=== PATIENT | female | born 1960 | race Caucasian/White ===

== ENCOUNTER → 2017-04-30 16:10 | Outpatient (CLI) | payer BC, SELFPAY ==
--- NOTE | 2017-04-30 | NASAL_PTH ---
PATIENT: SHENA HOUSER LOC: [facility] U#:[id number] AGE/SX: 64/F ROOM: RE04/30/[address]: Dr. Johnson Portillo MD : [id number] BED: DIS: SPEC #: [id number] RECD: 04/30/17 15:54 STATUS: LAUREN NATA #: [id number] RENEE: 04/30/17 00:[address]: Johnson Portillo DEPT: SURGICAL PATHOLOGY RECD BY: Chucho Barnes ENTERED: 05/01/17 12:11 SP TYPE: NASAL SPEC OTHR DR: Dr. Ashlee Abbott MD [facility] Tissues: Nasal septum, NOS Procedures: Decalcification bone/plaque Surgery Specimen Level III HEADER OPERATION: Septoplasty PRE-OP DIAGNOSIS: Nasal congestion, deviated nasal septum TISSUE SUBMITTED: Nasal septum MICROSCOPIC DIAGNOSIS Nasal septum: Fragments of cartilage and bone, clinically deviated nasal septum. SJ:haydee 05/04/17 MICROSCOPIC DESCRIPTION Slides are reviewed. GROSS DESCRIPTION Received in fixative is one container labeled with the patient's name and designated nasal septum. The specimen consists of multiple fragments of cartilage and bone that in aggregate measure 3 x 2.5 x 0.5 cm. Curve Cleaner tissue is submitted in one cassette after decalcification. / SJ:rg 05/01/17 TC:5 CPT: 61950, 46827
== END ==
PROVIDERS: Family Provider Internal Medicine; PCP Internal Medicine; Visit Provider Otolaryngology
DX: J34.2 Deviated nasal septum (principal); R09.81 Nasal congestion
CPT/HCPCS: 88304; 88311

== ENCOUNTER → 2017-11-08 13:00 | Outpatient (CLI) | payer BC, SELFPAY | PROVIDERS: Family Provider Internal Medicine; PCP Internal Medicine; Visit Provider Internal Medicine Cardiovascular Disease | DX: I34.1 Nonrheumatic mitral (valve) prolapse (principal) | CPT/HCPCS: 93306 ==

== ENCOUNTER → 2019-04-08 09:48 | Outpatient (CLI) | payer BC, SELFPAY ==
[2019-01-28 11:37] VITALS: BMI 21.6
--- NOTE | 2019-04-08 09:50 | ECHOD_ITS ---
Reason For Study: MVP Procedure This was a 2D Doppler, Color Flow transthoracic echocardiogram. Exam performed in department. Left Ventricle Normal LV size. Left ventricular systolic function is normal. The estimated ejection fraction is 55 %. Normal diastology for age. No regional wall motion abnormalities noted. Right Ventricle Normal RV size. Normal systolic function. Atria The left atrium is mildly enlarged. Normal right atrium. Mitral Valve Bileaflet diffuse mitral valve thickening. Anterior leaflet mitral valve prolapse. Mild (1+) anteriorly directed mitral valve insufficiency. Tricuspid Valve Normal tricuspid valve. Aortic Valve Normal aortic valve. Trisinus/trileaflet aortic valve. Pulmonic Valve Normal pulmonic valve. Great Vessels Normal aortic root. The pulmonary artery is normal size. Normal inferior vena cava. Pericardium/Pleural No pericardial effusion. MMode/2D Measurements & Calculations LVIDd: 5.2 cm IVSd: 0.89 cm Ao root diam: 3.7 cm LVIDs: 3.7 cm LVPWd: 0.98 cm RVDd: 2.9 cm FS: 28.3 % LAV(MOD-bp): 88.8 ml LA A4 area: 23.9 cm2 LA dimension(2D): 4.2 cm LAV(MOD-bp) Indexed: 51.1 ml/m2 LAV(MOD-sp2): 85.2 ml LAV(MOD-sp4): 81.0 ml RA A4 area: 13.8 cm2 Time Measurements MV dec time: 0.16 sec Doppler Measurements & Calculations MV E max ricardo: 101.2 cm/sec Lat Peak E' Ricardo: 14.6 cm/sec Med Peak E' Ricardo: 10.0 cm/sec MV A max ricardo: 65.0 cm/sec E/E' lat: 6.9 E/E' med: 10.1 MV E/A: 1.6 Ao V2 max: 140.9 cm/sec LV V1 max: 99.8 cm/sec PA V2 max: 72.2 cm/sec Ao max P.9 mmHg LV V1 max P.0 mmHg TR max ricardo: 223.1 cm/sec TR max P.9 mmHg Interpretation Summary Normal LV size. Left ventricular systolic function is normal. The estimated ejection fraction is 55 %. Bileaflet diffuse mitral valve thickening. Anterior leaflet mitral valve prolapse. Mild (1+) anteriorly directed mitral valve insufficiency. Compared to prior study, there is no significant change. Ordering Physician: Abram Lawler Referring Physician: Ashlee Abbott Performed By: Tory Lombardi, JACQUESCS, RVT
== END ==
PROVIDERS: Family Provider Internal Medicine; PCP Internal Medicine; Referring Provider Internal Medicine Cardiovascular Disease; Visit Provider Internal Medicine Cardiovascular Disease
DX: I34.0 Nonrheumatic mitral (valve) insufficiency (principal)
CPT/HCPCS: 93306

== ENCOUNTER → 2021-02-14 13:47 | Outpatient (CLI) | payer BC, SELFPAY ==
--- NOTE | 2021-02-14 13:48 | ECHOD_ITS ---
Reason For Study: MVP Procedure This was a 2D Doppler, Color Flow transthoracic echocardiogram. Exam performed in department. Left Ventricle Normal LV size. Left ventricular systolic function is normal. The estimated ejection fraction is 60 %. Stage 2 diastolic dysfunction. No regional wall motion abnormalities noted. Right Ventricle Normal RV size. Normal systolic function. Atria Normal left atrium. Normal right atrium. Mitral Valve Bileaflet diffuse mitral valve thickening. Anterior leaflet mitral valve prolapse. Mild-Moderate (1- 2+) mitral valve insufficiency. Tricuspid Valve Normal tricuspid valve. Mild (1+) tricuspid valve insufficiency. Pulmonary artery systolic pressure is 30 mmHg. Aortic Valve Normal aortic valve. Trisinus/trileaflet aortic valve. Pulmonic Valve Normal pulmonic valve. Great Vessels Normal aortic root. The pulmonary artery is normal size. Normal inferior vena cava. Pericardium/Pleural No pericardial effusion. MMode/2D Measurements & Calculations LVIDd: 5.6 cm IVSd: 0.86 cm Ao root diam: 3.1 cm LVIDs: 3.6 cm LVPWd: 0.63 cm RVDd: 2.8 cm FS: 36.0 % LAV(MOD-bp): 43.8 ml LVAd ap4: 33.5 cm2 SV(MOD-sp4): 70.1 ml LAV(MOD-bp) Indexed: 25.1 ml/m2 LVLd ap4: 8.6 cm LAV(MOD-sp2): 45.9 ml EDV(MOD-sp4): 108.2 ml LAV(MOD-sp4): 34.6 ml EDV(sp4-el): 110.7 ml LVAs ap4: 17.5 cm2 LVLs ap4: 7.2 cm ESV(MOD-sp4): 38.2 ml ESV(sp4-el): 35.9 ml EF(MOD-sp4): 64.7 % EF(sp4-el): 67.6 % SV(sp4-el): 74.8 ml LA A4 area: 15.0 cm2 LA dimension(2D): 3.2 cm RA A4 area: 10.1 cm2 Doppler Measurements & Calculations MV E max ricardo: 94.0 cm/sec Lat Peak E' Ricardo: 14.7 cm/sec Med Peak E' Ricardo: 9.9 cm/sec MV A max ricardo: 48.7 cm/sec E/E' lat: 6.4 E/E' med: 9.5 MV E/A: 1.9 Ao V2 max: 143.4 cm/sec LV V1 max: 83.3 cm/sec PA V2 max: 88.0 cm/sec Ao max P.2 mmHg LV V1 max P.8 mmHg Ao V2 mean: 98.0 cm/sec Ao mean P.3 mmHg Ao V2 VTI: 31.0 cm TR max ricardo: 249.5 cm/sec TR max P.9 mmHg ECHO/Echo Complete Interpretation Summary Normal LV size. Left ventricular systolic function is normal. The estimated ejection fraction is 60 %. Stage 2 diastolic dysfunction. Anterior leaflet mitral valve prolapse. Mild-Moderate (1-2+) mitral valve insufficiency. Ordering Physician: Abram Lawler Referring Physician: Ashlee Abbott Performed By: Mariya Pitts, PIPER, RVT
== END ==
PROVIDERS: PCP Internal Medicine; Referring Provider Internal Medicine Cardiovascular Disease; Visit Provider Internal Medicine Cardiovascular Disease
DX: I34.1 Nonrheumatic mitral (valve) prolapse (principal)
CPT/HCPCS: 93306

== ENCOUNTER → 2022-02-06 | Outpatient (CLI) | payer BC, SELFPAY ==
--- NOTE | 2022-02-06 12:46 | ECHOD_ITS ---
Version 2 Reason For Study: MITRAL VALVE INSUFFICIENCY Procedure This was a 2D Doppler, Color Flow transthoracic echocardiogram. Exam performed in department. Left Ventricle Normal LV size. Left ventricular systolic function is normal. The estimated ejection fraction is 60 %. Normal diastology for age. No regional wall motion abnormalities noted. Right Ventricle Normal RV size. Normal systolic function. Atria Normal left atrium. Normal right atrium. Mitral Valve Bileaflet diffuse mitral valve thickening. Anterior leaflet mitral valve prolapse. Mild-Moderate (1- 2+) eccentric mitral valve insufficiency. Tricuspid Valve Normal tricuspid valve. Mild (1+) tricuspid valve insufficiency. Pulmonary artery systolic pressure is 26 mmHg. Aortic Valve Normal aortic valve. Pulmonic Valve Normal pulmonic valve. Great Vessels Normal aortic root. The pulmonary artery is normal size. Normal inferior vena cava. Pericardium/Pleural No pericardial effusion. MMode/2D Measurements & Calculations LVIDd: 5.6 cm IVSd: 1.0 cm Ao root diam: 3.6 cm LVIDs: 3.4 cm LVPWd: 1.0 cm RVDd: 2.9 cm FS: 38.1 % LAV(MOD-bp): 64.6 ml LVAd ap4: 37.3 cm2 LVAd ap2: 35.7 cm2 LAV(MOD-bp) Indexed: 36.2 ml/m2 LVLd ap4: 8.5 cm LVLd ap2: 8.7 cm LAV(MOD-sp2): 69.1 ml EDV(MOD-sp4): 135.9 ml EDV(MOD-sp2): 122.8 ml LAV(MOD-sp4): 62.8 ml EDV(sp4-el): 138.3 ml EDV(sp2-el): 124.1 ml LVAs ap4: 20.9 cm2 LVAs ap2: 20.3 cm2 LVLs ap4: 7.2 cm LVLs ap2: 7.3 cm ESV(MOD-sp4): 52.9 ml ESV(MOD-sp2): 49.1 ml ESV(sp4-el): 51.5 ml ESV(sp2-el): 48.2 ml EF(MOD-sp4): 61.1 % EF(MOD-sp2): 60.0 % EF(sp4-el): 62.7 % SV(MOD-sp4): 83.0 ml SV(MOD-sp2): 73.7 ml SV(sp4-el): 86.8 ml LA dimension(2D): 3.6 cm LA A4 area: 20.5 cm2 RA A4 area: 13.9 cm2 Time Measurements MV dec time: 0.28 sec Doppler Measurements & Calculations MV E max ricardo: 104.7 cm/sec Lat Peak E' Ricardo: 13.3 cm/sec Med Peak E' Ricardo: 13.4 cm/sec MV A max ricardo: 57.0 cm/sec E/E' lat: 7.9 E/E' med: 7.8 MV E/A: 1.8 Ao V2 max: 108.4 cm/sec LV V1 max: 87.7 cm/sec MR max ricardo: 503.1 cm/sec Ao max P.7 mmHg LV V1 max P.1 mmHg MR max P.3 mmHg Ao V2 mean: 78.5 cm/sec LV V1 mean P.8 mmHg MR mean ricardo: 419.4 cm/sec Ao mean P.8 mmHg LV V1 mean: 62.6 cm/sec MR mean P.7 mmHg Ao V2 VTI: 26.5 cm LV V1 VTI: 20.2 cm MR VTI: 191.5 cm AV (velocity ratio): 0.76 PA V2 max: 63.3 cm/sec TR max ricardo: 241.6 cm/sec TR max P.3 mmHg ECHO/Echo Complete Interpretation Summary Normal LV size. Left ventricular systolic function is normal. The estimated ejection fraction is 60 %. Bileaflet diffuse mitral valve thickening. Mild-Moderate (1-2+) eccentric mitral valve insufficiency. Anterior leaflet mitral valve prolapse. Compared to the above is essentially unchanged. Ordering Physician: Jenna Restrepo Referring Physician: Ashlee Abbott Performed By: Tory Lombardi, JACQUESCS, RVT
== END | disposition home or self-care (01) ==
LOC: CVS 12:45
PROVIDERS: PCP Internal Medicine; Referring Provider Nurse Practitioner Gerontology; Visit Provider Nurse Practitioner Gerontology
DX: I34.0 Nonrheumatic mitral (valve) insufficiency (principal)
CPT/HCPCS: 93306

== ENCOUNTER → 2022-05-29 | Outpatient (CLI) | payer BC, SELFPAY ==
[2022-05-29 16:50] LABS: Hematocrit 38.4 % (37-47); Hemoglobin 12.5 g/dL (12.0-15.0); Mean Corp Hgb Conc 32.6 g/dL (32-36); Mean Corpuscular Hgb 31.7 pg (27.0-32.0); Mean Corpuscular Volume 97.5 fL (81-99); Mean Platelet Vol. 12.4 fl (6.2-12.0); Platelet Count 176 K/mm3 (150-450); RBC Distribution Width CV 12.4 % (11.6-14.6); RBC Distribution Width SD 44.8 fl (35.1-43.9); Red Blood Count 3.94 M/mm3 (4.2-5.4); White Blood Count 6.2 K/mm3 (4.4-11.0)
[2022-05-29 17:15] LABS: Anion Gap 6 (5-15); BUN 15 mg/dL (7-18); BUN/Creat Ratio 16.2 RATIO (10-20); Calcium,Total 9.3 mg/dL (8.5-10.1); Chloride 107 mmol/L (98-107); Creatinine, Serum 0.92 mg/dL (0.55-1.02); EST Glomerular Filtration Rate 66 mL/min (>60); Est Glom Filt Rate - Afr Amer 79 mL/min (>60); Glucose 118 mg/dL (74-106); Magnesium 2.2 mg/dL (1.6-2.6); Potassium 3.9 mmol/L (3.5-5.1); Sodium Level 140 mmol/L (136-145); Thyroid Stim Hormone (TSH) 1.86 uIU/mL (0.358-3.74)
== END | disposition home or self-care (01) ==
LOC: LAB 15:57
PROVIDERS: PCP Internal Medicine; Referring Provider Nurse Practitioner Gerontology; Visit Provider Nurse Practitioner Gerontology
DX: R00.2 Palpitations (principal); I34.1 Nonrheumatic mitral (valve) prolapse; Z98.890 Other specified postprocedural states
CPT/HCPCS: 36415; 80048; 83735; 84443; 85027

== ENCOUNTER → 2022-06-05 | Outpatient (CLI) | payer BC, SELFPAY | END | disposition home or self-care (01) | PROVIDERS: PCP Internal Medicine; Visit Provider Nurse Practitioner Gerontology | DX: R00.2 Palpitations (principal); I34.1 Nonrheumatic mitral (valve) prolapse | CPT/HCPCS: 93225; 93226 ==

== ENCOUNTER → 2022-11-06 | Outpatient (CLI) | payer BC, SELFPAY ==
--- NOTE | 2022-11-06 13:05 | ECHOD_ITS ---
Reason For Study: MVP Procedure This was a 2D Doppler, Color Flow transthoracic echocardiogram. Exam performed in department. Left Ventricle Normal LV size. Left ventricular systolic function is normal. No regional wall motion abnormalities noted. Right Ventricle Normal RV size. Normal systolic function. Atria Normal left atrium. Normal right atrium. Mitral Valve Anterior leaflet mitral valve prolapse. Mild-Moderate (1-2+) eccentric mitral valve insufficiency. Tricuspid Valve Normal tricuspid valve. Mild tricuspid valve insufficiency. Pulmonary artery systolic pressure is 20 mmHg. Aortic Valve Trisinus/trileaflet aortic valve. Pulmonic Valve Normal pulmonic valve. Great Vessels Normal aortic root. The pulmonary artery is normal size. Normal inferior vena cava. Pericardium/Pleural No pericardial effusion. MMode/2D Measurements & Calculations LVIDd: 5.6 cm IVSd: 0.93 cm Ao root diam: 3.2 cm LVIDs: 3.6 cm LVPWd: 0.81 cm RVDd: 2.4 cm FS: 35.4 % LAV(MOD-bp): 51.4 ml LVAd ap4: 32.9 cm2 SV(MOD-sp4): 70.8 ml LAV(MOD-bp) Indexed: 29.3 ml/m2 LVLd ap4: 7.8 cm LAV(MOD-sp2): 53.7 ml EDV(MOD-sp4): 118.1 ml LAV(MOD-sp4): 36.7 ml EDV(sp4-el): 118.7 ml LVAs ap4: 18.9 cm2 LVLs ap4: 6.5 cm ESV(MOD-sp4): 47.3 ml ESV(sp4-el): 46.7 ml EF(MOD-sp4): 59.9 % EF(sp4-el): 60.6 % SV(sp4-el): 71.9 ml LA A4 area: 15.9 cm2 LA dimension(2D): 3.7 cm RA A4 area: 10.6 cm2 TAPSE: 2.2 cm Time Measurements MV dec time: 0.20 sec Doppler Measurements & Calculations MV E max ricardo: 80.0 cm/sec Lat Peak E' Ricardo: 10.1 cm/sec Med Peak E' Ricardo: 8.7 cm/sec MV A max ricardo: 37.0 cm/sec E/E' lat: 7.9 E/E' med: 9.2 MV E/A: 2.2 MV V2 max: 87.9 cm/sec Ao V2 max: 136.4 cm/sec MV max P.1 mmHg MV dec slope: 395.6 cm/sec2 Ao max P.4 mmHg MV V2 mean: 45.2 cm/sec Ao V2 mean: 96.6 cm/sec MV mean P.99 mmHg Ao mean P.2 mmHg MV V2 VTI: 26.5 cm Ao V2 VTI: 31.5 cm AV (velocity ratio): 0.72 LV V1 max: 103.9 cm/sec PA V2 max: 82.1 cm/sec TR max ricardo: 201.8 cm/sec LV V1 max P.3 mmHg TR max P.3 mmHg LV V1 mean P.5 mmHg LV V1 mean: 73.1 cm/sec LV V1 VTI: 22.6 cm ECHO/Echo Complete Interpretation Summary Normal LV size. Left ventricular systolic function is normal. Anterior leaflet mitral valve prolapse. Mild-Moderate (1-2+) eccentric mitral valve insufficiency. Pulmonary artery systolic pressure is 20 mmHg. Compared to the previous the above is essentially unchanged. Ordering Physician: Abram Lawler Referring Physician: Ashlee Abbott Performed By: Mariya Pitts, RDCS, RVT
== END | disposition home or self-care (01) ==
LOC: CVS 12:56
PROVIDERS: PCP Internal Medicine; Referring Provider Internal Medicine Cardiovascular Disease; Visit Provider Internal Medicine Cardiovascular Disease
DX: I34.1 Nonrheumatic mitral (valve) prolapse (principal)
CPT/HCPCS: 93306

== ENCOUNTER → 2025-02-03 | Outpatient (CLI) | payer OTHER, SELFPAY | END | disposition home or self-care (01) | LOC: CVS 14:41 | PROVIDERS: PCP Internal Medicine; Referring Provider Physician Assistant Medical; Visit Provider Physician Assistant Medical | DX: I34.1 Nonrheumatic mitral (valve) prolapse (principal) | CPT/HCPCS: 93306 ==